=== PATIENT | male | born 1995 | race Caucasian/White ===

== ENCOUNTER 2021-01-02 01:21 | Emergency (ER) | payer SELFPAY ==
[~2021-01-02] VITALS: Ht 175.3 cm; Wt 71.7 kg
[2021-01-02 01:25] VITALS: BP 121/72
== END 2021-01-02 01:43 ==
LOC: MED 01:21
DX: Z02.89 Encounter for other administrative examinations (principal); V89.2XXA Person injured in unspecified motor-vehicle accident, traffic, initial encounter; Y93.89 Activity, other specified; Y92.89 Other specified places as the place of occurrence of the external cause; Y99.8 Other external cause status
CPT/HCPCS: 99283